=== PATIENT | female | born 1945 | race Caucasian/White ===

== ENCOUNTER 2025-04-26 03:22 | Emergency (ER) | payer OTHER ==
[2025-04-26] MEDS ORDERED: MORPHINE 4 MG/ML SYR ONE (03:48)
[2025-04-26] MEDS ORDERED: KETOROLAC 30 MG/ML INJ ONE (03:48)
[2025-04-26] MEDS ORDERED: METHOCARBAMOL 1,000 MG/10 ML VIAL ONE (03:48)
[2025-04-26] MEDS ORDERED: ONDANSETRON 4 MG/2 ML VIAL ONE (03:48)
[2025-04-26] MEDS ORDERED: NA CHLORIDE 0.9% 100 ML ONE (03:49)
[2025-04-26 04:03] LABS: Absolute Lymphocytes (CBC) 1.1 K/uL (0.7-4.9); Hematocrit 43.1 % (36.0-45.0); Hemoglobin 14.2 g/dL (12.0-15.0); MCH 26.8 pg (27.0-35.0); MCHC 32.9 g/dL (32.0-36.0); MCV 81.4 fL (80-100); MPV 8.9 fL (7.6-11.3); Nucleated RBC Absolute Count 0.0 (0-0); Nucleated Red Blood Cells % 0.1 % (0-0); RBC Red Blood Cell Count 5.29 M/uL (3.86-4.86); White Blood Count 4.90 thou/uL (4.3-10.9)
[2025-04-26 04:15] LABS: AST/SGOT 16 U/L (15-37); Albumin 4.1 g/dL (3.4-5.0); Albumin/Globulin Ratio 1.3 (1.1-1.8); Alkaline Phosphatase 114 U/L (45-117); Anion Gap 11.2 mEq/L (5.0-15.0); BUN Blood Urea Nitrogen 13 mg/dL (7-18); Globulin 3.1 g/dL (2.3-3.5); Glucose Level 119 mg/dL (74-106); Potassium 3.2 mEq/L (3.5-5.1)
[2025-04-26 04:18] LABS: ALT/SGPT < 14 U/L (13-56)
--- NOTE | 2025-04-26 05:51 | EDPHYS ---
Physician Documentation [facility] Name: Zoya Henry Age: 79 yrs Sex: Female : 1945 Arrival Date: 04/26/2025 Time: 03:22 Bed 19 Private MD: ED Physician Hemanth Doll HPI: 04/26 03:34 This 79 yrs old Other Race Female presents to ER via Unassigned with complaints of Low sp4 Back Pain. 22:00 79-year-old female presents with moderate right lower back pain after pulling on some sp4 heavy boxes. History of kyphosis and scoliosis. Historical: - PMHx: 03:38 Hyperlipidemia; Hypertension; br2 - PSHx: 03:38 Ligation of fallopian tube; Cholecystectomy; br2 - Immunization history:: Adult Immunizations up to date. - Infectious Disease History:: Denies. - Social history:: Smoking status: Patient denies any tobacco usage or history of. Patient uses alcohol, occasionally. Patient/guardian denies using street drugs. - Family history:: not pertinent. ROS: 22:00 Constitutional: Negative for fever, chills, and weight loss, sp4 22:00 All other systems are negative, Exam: 22:00 Constitutional: This is a well developed, well nourished patient who is awake, alert, sp4 and in no acute distress. Head/Face: Normocephalic, atraumatic. Eyes: Pupils equal round and reactive to light, extra-ocular motions intact. Lids and lashes normal. Conjunctiva and sclera are not injected. Cornea within normal limits. Periorbital areas with no swelling, redness, or edema. ENT: Nares patent. No nasal discharge, no septal abnormalities noted. Tympanic membranes are normal and external auditory canals are clear. Oropharynx with no redness, swelling, or masses, exudates, or evidence of obstruction, uvula midline. Mucous membranes moist. Neck: Trachea midline, no thyromegaly or masses palpated, and no cervical lymphadenopathy. Supple, full range of motion without nuchal rigidity, or vertebral point tenderness. Chest/axilla: Normal chest wall appearance and motion. Nontender with no deformity. No lesions are appreciated. Cardiovascular: Regular rate and rhythm with a normal S1 and S2. No gallops, murmurs, or rubs. No pulse deficits. Respiratory: Lungs have equal breath sounds bilaterally, clear to auscultation and percussion. No rales, rhonchi or wheezes noted. No increased work of breathing, no retractions or nasal flaring. Abdomen/GI: Soft, with normal bowel sounds. No distension or tympany. No guarding or rebound. No evidence of tenderness throughout. Back: No spinal tenderness. No costovertebral tenderness, right lower spinal muscular tenderness Skin: Warm, dry with normal turgor. Normal color with no rashes, no lesions, and no evidence of cellulitis. MS/ Extremity: Pulses equal, no cyanosis. Neurovascular intact. Full, normal range of motion. Neuro: Awake and alert, GCS 15, oriented to person, place, time, and situation. Cranial nerves II-XII grossly intact. Motor strength 5/5 in all extremities. Sensory grossly intact. Psych: Awake, alert, with orientation to person, place and time. Behavior, mood, and affect are within normal limits Vital Signs: 03:35 BP 166 / 92; Pulse 105; Resp 18; Temp 97.1; Pulse Ox 94% ; Weight 68.04 kg; Height 5 br2 ft. 1 in. ; Pain 10/10; 04:49 BP 126 / 71; Pulse 82; Resp 16; Temp 98.1; Pulse Ox 95% on R/A; Pain 0/10; zm 06:10 BP 135 / 67; Pulse 81; Resp 17; Temp 98.1; Pulse Ox 99% ; Pain 0/10; bm8 03:35 Body Mass Index 28.34 (68.04 kg, 154.94 cm) br2 03:35 Pain Scale: Adult br2 04:49 Pain Scale: Adult zm 06:10 Pain Scale: Adult bm8 [place] Coma Score: 04:49 Eye Response: spontaneous(4). Motor Response: obeys commands(6). Verbal Response: zm oriented(5). Total: 15. 06:10 Eye Response: spontaneous(4). Motor Response: obeys commands(6). Verbal Response: bm8 oriented(5). Total: 15. 22:00 Eye Response: spontaneous(4). Motor Response: obeys commands(6). Verbal Response: sp4 oriented(5). Total: 15. MDM: 03:56 Medical Screening Exam initiated sp4 05:19 ED course: COMPARISON: XR Pelvis 12/02/2021. FINDINGS: BOWEL: Colonic diverticulosis, sp4 severe in the sigmoid colon, without evidence of acute diverticulitis. No obstruction. APPENDIX: No findings to suggest acute appendicitis. INTRAPERITONEAL SPACE: Unremarkable No free air. No significant fluid collection. BLADDER: Unremarkable No stones. REPRODUCTIVE: Unremarkable as visualized. BONES/JOINTS: No acute fracture. No dislocation. SOFT TISSUES: Unremarkable VASCULATURE: Unremarkable No lower abdominal aortic aneurysm. LYMPH NODES: Unremarkable No enlarged lymph nodes. IMPRESSION: 1. No acute abnormality of the pelvis. 2. Colonic diverticulosis without evidence of acute diverticulitis. Electronically signed by: Aubrey Myers MD 04/26/2025 05:09. 05:47 ED course: EXAMINATION: CT LUMBAR SPINE WITHOUT IV CONTRAST INDICATION: 79 years old sp4 Female 1945 Pain. COMPARISON(S): XR Lumbar Spine 12/02/2021. TECHNIQUE: Axial CT images of the lumbar spine were obtained. Sagittal and coronal reformatted images were created from the data set. One or more of the following dose reduction techniques were used: Automated exposure control, adjustment of the mA and/or kV according to patient size, and/or iterative reconstruction. CONTRAST: As stated in examination. FINDINGS: ALIGNMENT: Mild grade 1 anterolisthesis L4 upon L5 measuring approximately 5 mm. No pars defect. BONE: Osteopenia. Large Schmorl's node with superior endplate depression of chronic appearance L2. DISCS: Vacuum disc phenomenon is seen at T12-L1, L1-2 and L3-4. Severe disc space height loss is present at L5-S1. LEVELS: L3-4 large diffuse disc bulge seen in conjunction with facet hypertrophy and ligamentum flavum atrophy producing moderate spinal canal stenosis. There is severe spinal canal stenosis at L4-5 secondary to the anterolisthesis in conjunction with facetal hypertrophic arthritic-related changes. Multilevel facetal osteoarthritic-related hypertrophic changes. SOFT TISSUE: No significant abnormalities in the paraspinal soft tissues. The visualized lungs are clear. IMPRESSION: Grade 1 anterolisthesis L4 upon L5. Multifactorial spinal canal stenosis at L3-4 and L4-5 as described. No acute findings.. 22:03 Differential diagnosis: arthritis, strain, fracture, sciatica, contusion, Herniated sp4 disc. Data reviewed: vital signs, nurses notes, radiologic studies, CT scan. Consideration of Admission/Observation Escalation of care including admission/observation considered. 04/26 03:43 Order name: CBC with Diff sp4 04/26 03:43 Order name: CMP sp4 04/26 03:43 Order name: CT Lumbar Spine Wo Con sp4 04/26 03:44 Order name: Pelvis Wo Cont CT sp4 04/26 03:43 Order name: IV Saline Lock; Complete Time: 03:47 sp4 04/26 03:43 Order name: Labs collected and sent; Complete Time: 03:47 sp4 Administered Medications: 03:53 Drug: morphine IVP or IV 4 mg IVP once over 4 mins Route: IVP; Infused Over: 4 mins; bm8 Site: right antecubital; 06:09 Follow up: Response: No adverse reaction bm8 03:53 Drug: Ondansetron IVP 4 mg IVP once; over 2 minutes Route: IVP; Site: right antecubital;bm8 06:09 Follow up: Response: No adverse reaction bm8 03:53 Drug: Ketorolac IVP 15 mg IVP once Route: IVP; Site: right antecubital; bm8 06:09 Follow up: Response: No adverse reaction bm8 03:53 Drug: Methocarbamol IVPB 1 grams IVPB once over 1 hrs; (mix in NS 100 mL) Route: IVPB; bm8 Infused Over: 1 hrs; Site: right antecubital; 06:10 Follow up: Response: No adverse reaction; IV Status: Completed infusion bm8 Disposition Summary: 04/26/25 05:50 Discharge Ordered Notes: Location: Home sp4 Problem: new sp4 Symptoms: have improved sp4 Condition: Stable sp4 Diagnosis - Acute lumbar sprain sp4 Followup: sp4 - With: Private Physician - When: 7 - 10 days - Reason: Recheck today's complaints Discharge Instructions: - Discharge Summary Sheet sp4 - Lumbar Sprain sp4 Forms: - Patient Portal Instructions sp4 Prescriptions: - meloxicam 15 mg Oral tablet - take 1 tablet ORAL route daily PRN pain; 30 tablet; Refills: 0, Product sp4 Selection Permitted - Tramadol 50 mg Oral tablet - take 1 tablet ORAL route every 8 hours as needed; 30 tablet; Refills: 0, sp4 Product Selection Permitted - methocarbamol 750 mg Oral tablet - take 1 tablet ORAL route every 8 hours for 10 days PRN pain; 60 tablet; sp4 Refills: 0, Product Selection Permitted Signatures: Dispatcher [employer] Hemanth Deutsch MD MD sp4 Kolby Barnett, RN RN bm8 Hina Hand, RN RN br2 Corrections: (The following items were deleted from the chart) 03:44 03:44 CBC+H.LAB.BRZ ordered. EDMS EDMS 03:44 03:44 COMPREHENSIVE METABOLIC PANEL+C.LAB.BRZ ordered. EDMS EDMS
--- NOTE | 2025-04-26 05:51 | ER ---
Nurse's Notes [facility] Name: Zoya Henry Age: 79 yrs Sex: Female : 1945 Arrival Date: 04/26/2025 Time: 03:22 Bed 19 Private MD: Diagnosis: Acute lumbar sprain Presentation: 04/26 03:35 Chief complaint: Patient states: PT C/O RIGHT LATERAL MID BACK PAIN. PT STATES SHE HAS br2 BEEN LIFTING OBJECT BECAUSE SHE IS PREPARING FOR A GARAGE SALE. PT STATES SHE HAS BEEN HAVING FREQ URINATION WELL BUT HAS BEEN DRINK A LOT OF WATER. Coronavirus screen: Client denies travel out of the [place] in the last 14 days. Ebola Screen: Patient denies exposure to infectious person. Initial Sepsis Screen: Does the patient meet any 2 criteria? No. Patient's initial sepsis screen is negative. Does the patient have a suspected source of infection? No. Patient's initial sepsis screen is negative. Risk Assessment: Do you want to hurt yourself or someone else? Patient reports no desire to harm self or others. Onset of symptoms was April 23, 2025. 03:35 Method Of Arrival: Ambulatory br2 03:35 Acuity: SELENE 3 br2 Triage Assessment: 03:38 General: Appears uncomfortable, Behavior is calm, cooperative, anxious. Pain: Complains br2 of pain in right mid back Pain currently is 10 out of 10 on a pain scale. Historical: - PMHx: 03:38 Hyperlipidemia; Hypertension; br2 - PSHx: 03:38 Ligation of fallopian tube; Cholecystectomy; br2 - Immunization history:: Adult Immunizations up to date. - Infectious Disease History:: Denies. - Social history:: Smoking status: Patient denies any tobacco usage or history of. Patient uses alcohol, occasionally. Patient/guardian denies using street drugs. - Family history:: not pertinent. Screenin:38 [facility] ED Fall Risk Assessment (Adult) History of falling in the last 3 months, lg3 including since admission No falls in past 3 months (0 pts) Confusion or Disorientation No (0 pts) Intoxicated or Sedated No (0 pts) Impaired Gait No (0 pts) Mobility Assist Device Used No (0 pt) Altered Elimination No (0 pt) Score/Fall Risk Level 0 - 2 = Low Risk Oriented to surroundings, Maintained a safe environment, Educated pt \T\ family on fall prevention, incl call for assistance when getting out of bed, Assessed \T\ reinforced patient's understanding of fall precautions. Abuse screen: Denies threats or abuse. Denies injuries from another. Nutritional screening: No deficits noted. Tuberculosis screening: No symptoms or risk factors identified. Assessment: 03:38 General: Appears in no apparent distress. uncomfortable, Behavior is calm, cooperative. lg3 Pain: Complains of pain in right mid back and right low back Pain does not radiate. Pain currently is 8 out of 10 on a pain scale. Noted to be grimacing, guarding, resistant to movement. Neuro: No deficits noted. W[place]ins Agitation-Sedation Scale (RASS): 0 - Alert and Calm Level of Consciousness is awake, alert, obeys commands, Oriented to person, place, time, situation. Cardiovascular: No deficits noted. Denies chest pain, shortness of breath, Capillary refill < 3 seconds Clubbing of nail beds is absent JVD is absent Patient's skin is warm and dry. Respiratory: No deficits noted. Airway is patent Respiratory effort is even, unlabored, Respiratory pattern is regular, symmetrical. GI: No deficits noted. No signs and/or symptoms were reported involving the gastrointestinal system. Abdomen is round non-distended. : Reports urinary frequency. EENT: No deficits noted. No signs and/or symptoms were reported regarding the EENT system. Derm: No deficits noted. No signs and/or symptoms reported regarding the dermatologic system. Skin is intact, is healthy with good turgor, Skin is dry, Skin is normal, Skin temperature is warm. Musculoskeletal: Circulation, motion, and sensation intact. Range of motion: intact in all extremities, Reports pain in right mid back and right low back. 04:49 Reassessment: Patient appears in no apparent distress at this time. Patient and/or zm family updated on plan of care and expected duration. Pain level reassessed. Patient is alert, oriented x 3, equal unlabored respirations, skin warm/dry/pink. Patient denies pain at this time. Patient states feeling better. Patient states symptoms have improved. Pain: Pain currently is 0 out of 10 on a pain scale. 06:10 Reassessment: Patient appears in no apparent distress at this time. Patient and/or bm8 family updated on plan of care and expected duration. Pain level reassessed. Patient is alert, oriented x 3, equal unlabored respirations, skin warm/dry/pink. Patient denies pain at this time. Patient states feeling better. Patient states symptoms have improved. Vital Signs: 03:35 BP 166 / 92; Pulse 105; Resp 18; Temp 97.1; Pulse Ox 94% ; Weight 68.04 kg; Height 5 br2 ft. 1 in. ; Pain 10/10; 04:49 BP 126 / 71; Pulse 82; Resp 16; Temp 98.1; Pulse Ox 95% on R/A; Pain 0/10; zm 06:10 BP 135 / 67; Pulse 81; Resp 17; Temp 98.1; Pulse Ox 99% ; Pain 0/10; bm8 03:35 Body Mass Index 28.34 (68.04 kg, 154.94 cm) br2 03:35 Pain Scale: Adult br2 04:49 Pain Scale: Adult zm 06:10 Pain Scale: Adult bm8 [place] Coma Score: 04:49 Eye Response: spontaneous(4). Motor Response: obeys commands(6). Verbal Response: zm oriented(5). Total: 15. 06:10 Eye Response: spontaneous(4). Motor Response: obeys commands(6). Verbal Response: bm8 oriented(5). Total: 15. 22:00 Eye Response: spontaneous(4). Motor Response: obeys commands(6). Verbal Response: sp4 oriented(5). Total: 15. ED Course: 03:26 Patient arrived in ED. gm2 03:29 Leny Ballard RN is Primary Nurse. lg3 03:34 Hemanth Doll MD is Attending Physician. sp4 03:38 Triage completed. br2 03:38 Patient has correct armband on for positive identification. Placed in gown. Bed in low lg3 position. Call light in reach. Side rails up X 1. Client placed on continuous cardiac and pulse oximetry monitoring. NIBP monitoring applied. Door closed. Noise minimized. Warm blanket given. Pillow given. Family accompanied patient. 03:38 Arm band placed on right wrist. br2 03:47 Initial lab(s) drawn, by me, sent to lab. Inserted saline lock: 22 gauge in right lg3 antecubital area, using aseptic technique. Blood collected. Flushed with 10 mL NS. 03:47 CBC with Diff Sent. lg3 03:47 CMP Sent. lg3 04:17 CT Lumbar Spine Wo Con In Process Unspecified. EDMS 04:[address] In Process Unspecified. EDMS 06:10 Provided Education on: POST ER CARE. bm8 06:10 No provider procedures requiring assistance completed. IV discontinued, intact, bm8 bleeding controlled, No redness/swelling at site. Pressure dressing applied. Administered Medications: 03:53 Drug: morphine IVP or IV 4 mg IVP once over 4 mins Route: IVP; Infused Over: 4 mins; bm8 Site: right antecubital; 06:09 Follow up: Response: No adverse reaction bm8 03:53 Drug: Ondansetron IVP 4 mg IVP once; over 2 minutes Route: IVP; Site: right antecubital;bm8 06:09 Follow up: Response: No adverse reaction bm8 03:53 Drug: Ketorolac IVP 15 mg IVP once Route: IVP; Site: right antecubital; bm8 06:09 Follow up: Response: No adverse reaction bm8 03:53 Drug: Methocarbamol IVPB 1 grams IVPB once over 1 hrs; (mix in NS 100 mL) Route: IVPB; bm8 Infused Over: 1 hrs; Site: right antecubital; 06:10 Follow up: Response: No adverse reaction; IV Status: Completed infusion bm8 Medication: 03:38 VIS not applicable for this client. lg3 Outcome: 05:50 Discharge ordered by . filippo 06:10 Discharged to home ambulatory, bm8 06:10 Condition: stable 06:10 Discharge instructions given to patient, family, Instructed on discharge instructions, follow up and referral plans. no drinking with medication, no driving heavy equipment, medication usage, safety practices, Demonstrated understanding of instructions, follow-up care, medications, 06:13 Patient left the ED. bm8 Signatures: Dispatcher [employer] Leny Reynolds RN JOSE ROBERTO lg3 Jody Villalobos, RN Hemanth Moy MD MD sp4 Brooke Strickland 2 Kolby Barnett RN RN bm8 Hina Hand RN RN br2
--- NOTE | 2025-04-26 06:24 | RAD REPORT ---
EXAMINATION: CT LUMBAR SPINE WITHOUT IV CONTRAST INDICATION: 79 years old Female 1945 Pain. COMPARISON(S): XR Lumbar Spine 12/02/2021. TECHNIQUE: Axial CT images of the lumbar spine were obtained. Sagittal and coronal reformatted images were created from the data set. One or more of the following dose reduction techniques were used: Automated exposure control, adjustment of the mA and/or kV according to patient size, and/or iterativ e reconstruction. CONTRAST: As stated in examination. FINDINGS: ALIGNMENT: Mild grade 1 anterolisthesis L4 upon L5 measuring approximately 5 mm. No pars defect. BONE: Osteopenia. Large Schmorl's node with superior endplate depression of chronic appearance L2. DISCS: Vacuum disc phenomenon is seen at T12-L1, L1-2 and L3-4. Severe disc space height loss is pres ent at L5-S1. LEVELS: L3-4 large diffuse disc bulge seen in conjunction with facet hypertrophy and ligamentum flavu m atrophy producing moderate spinal canal stenosis. There is severe spinal canal stenosis at L4-5 secondary to the anterolisthesis in conjunction with facetal hypertrophic arthritic-related changes. Multilevel facetal osteoarthritic-related hypertrophic changes. SOFT TISSUE: No significant abnormalities in the paraspinal soft tissues. The visualized lungs are clear. IMPRESSION: Grade 1 anterolisthesis L4 upon L5. Multifactorial spinal canal stenosis at L3-4 and L4-5 as described. No acute findings. Electronically signed by: Efra Zepeda MD 04/26/2025 05:29 AM CDT Due to temporary technical issues with the PACS/[employer] reporting system, reports are being [place] d by the in-house radiologist without review as a courtesy to ensure prompt reporting the interpreting radiologist is fully responsible for the content of the report. Transcribed Date/Time: 04/26/2025 6:24 AM
--- NOTE | 2025-04-26 06:24 | RAD REPORT ---
PROCEDURE: CT Pelvis Without Intravenous Contrast CLINICAL INDICATION: The patient is 79 years old and is Female; Spinal and pelvic pain. TECHNIQUE: Axial computed tomography images of the pelvis without intravenous contrast. Sagittal and coronal r eformatted images were created and reviewed. This CT exam was performed using one or more of the following dose reduction techniques: automated exposure control, adjustment of the mA and/or kV acc ording to patient size, and/or use of iterative reconstruction technique. COMPARISON: XR Pelvis 12/02/2021. FINDINGS: BOWEL: Colonic diverticulosis, severe in the sigmoid colon, without evidence of acute diverticuliti s. No obstruction. APPENDIX: No findings to suggest acute appendicitis. INTRAPERITONEAL SPACE: Unremarkable No free air. No significant fluid collection. BLADDER: Unremarkable No stones. REPRODUCTIVE: Unremarkable as visualized. BONES/JOINTS: No acute fracture. No dislocation. SOFT TISSUES: Unremarkable VASCULATURE: Unremarkable No lower abdominal aortic aneurysm. LYMPH NODES: Unremarkable No enlarged lymph nodes. IMPRESSION: 1. No acute abnormality of the pelvis. 2. Colonic diverticulosis without evidence of acute diverticulitis. Electronically signed by: Aubrey Myers MD 04/26/2025 05:09 AM CDT Due to temporary technical issues with the PACS/[employer] reporting system, reports are being [place] d by the in-house radiologist without review as a courtesy to ensure prompt reporting the interpreting radiologist is fully responsible for the content of the report. Transcribed Date/Time: 04/26/2025 6:23 AM
[2025-04-26 06:49] VITALS: BP 135/67; TEMP 98.1; O2SAT 99
== END 2025-04-26 06:13 | disposition home or self-care (01) ==
LOC: ER 03:22
DX: S33.5XXA Sprain of ligaments of lumbar spine, initial encounter (principal)
CPT/HCPCS: 96365; 85025; 36415; 80053; 72131; 72192; 96375; 99284; 96366; J2405; J2800